=== PATIENT | female | born 1990 | race Two or more races ===

== ENCOUNTER 2024-09-16 20:04 | Emergency (ER) | payer MEDICAID, OTHER ==
[~2024-09-16] VITALS: Ht 157.5 cm; Wt 72.7 kg
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
[2024-09-16] MEDS: KETOROLAC TROMETH 30 MG/ML 1ML VIAL IM ONE (23:13)
[2024-09-16] MEDS: ACETAMINOPHEN 325 MG TAB PO ONE (23:14)
[2024-09-16 23:28] VITALS: BP 116/71; PULSE 18; RESP 18; TEMP 97.9; O2SAT 98
== END 2024-09-16 23:33 | disposition home or self-care (01) ==
LOC: EDBD 20:04 → ER 20:04
DX: S00.03XA Contusion of scalp, initial encounter (principal); R51.9 Headache, unspecified; M54.2 Cervicalgia; Z85.850 Personal history of malignant neoplasm of thyroid; Z90.49 Acquired absence of other specified parts of digestive tract; Z88.5 Allergy status to narcotic agent; Z88.0 Allergy status to penicillin; Z88.6 Allergy status to analgesic agent; Z79.891 Long term (current) use of opiate analgesic; Z79.1 Long term (current) use of non-steroidal anti-inflammatories (NSAID); V89.2XXA Person injured in unspecified motor-vehicle accident, traffic, initial encounter; Y93.89 Activity, other specified; Y92.410 Unspecified street and highway as the place of occurrence of the external cause; Y99.8 Other external cause status
CPT/HCPCS: 70450; 71046; 72125; 96372; 99285; J1885